=== PATIENT | male | born 2000 ===

== ENCOUNTER → 2024-11-07 | Outpatient (CLI) | payer MEDICAID ==
[2024-11-07 16:11] LABS: Alkaline Phosphatase 87 U/L (46-116); Anion Gap 10 (5-15); BUN/Creatinine Ratio 10.7 (10.0-20.0); Blood Urea Nitrogen 12 mg/dL (9-23); Calcium 10.0 mg/dL (8.7-10.4); Carbon Dioxide 27 mmol/L (20-31); Chloride 105 mmol/L (98-107); Glucose 90 mg/dL (74-106); HDL Cholesterol 42 mg/dL (40-59); Potassium 4.0 mmol/L (3.5-5.1); Sodium 142 mmol/L (136-145)
[2024-11-07 16:12] LABS: Bilirubin, Total 0.5 mg/dL (0.2-1.0)
[2024-11-07 16:13] LABS: Alanine Aminotransferase 101 U/L (7-40); Albumin 5.1 g/dL (3.2-4.8); Cholesterol 232 mg/dL (< 200); Total Protein 8.3 g/dL (5.7-8.2); Triglycerides 273 mg/dL (< 150)
== END | disposition home or self-care (01) ==
LOC: LAB 14:47
PROVIDERS: ATTEND Nurse Practitioner
DX: R73.9 Hyperglycemia, unspecified (principal)
CPT/HCPCS: 36415; 80053; 80061; 83036